=== PATIENT | male | born 1970 | race Hispanic/Latino ===

== ENCOUNTER → 2018-05-21 | Outpatient (CLI) | payer OTHER ==
--- NOTE | 2018-05-21 13:04 | Diagnostic Imaging Report ---
Exam: Left Hand Series. History: Trauma to middle finger one week prior. Comparison: None. Findings: No evidence of acute fracture or malalignment. Joint spaces are well preserved. Mild soft tissue edema in the proximal middle finger. Impression: No acute radiographic amount he. Mild soft tissue edema in the proximal middle finger. Signed by: Dr. Austin Lange MD on 05/21/2018 1:01 PM
== END ==
LOC: RAD 10:58
PROVIDERS: ATTEND Internal Medicine Interventional Cardiology
DX: M79.645 Pain in left finger(s) (principal); S69.92XA Unspecified injury of left wrist, hand and finger(s), initial encounter